=== PATIENT | female | born 1930 | race African-American/Black ===

== ENCOUNTER 2017-01-27 13:38 | Observation (INO) | payer MEDICARE, OTHER ==
--- NOTE | ~2017-01-27 | HP ---
Unit #: [id number] #: [id number] Patient: MI MONTERO [id number] [address] [address] [id number] MR#: [id number] NAME: MI MONTERO ROOM: 26485 Age: 86 Sex: F Admission Date: 01/27/2017 : 1930 Attending Physician: Herminia Davila M.D. Primary Care Physician: No Primary Care Physician HISTORY AND PHYSICAL CHIEF COMPLAINT Weakness, altered mental status. HISTORY OF PRESENT ILLNESS The patient is an 86-year-old female with a history of a hypertension, brought to the emergency room lethargic and more confused than normal. The patient is hard of hearing and a poor historian and the history is obtained by speaking to the patient's daughter at the bedside. The patient was found to be more confused with a facial asymmetry. The patient's last baseline was at 9:30 a.m. The patient's asymmetry was resolved upon arrival to the emergency room, within 20 to [address] of the head has remained negative. The patient was found to bradycardic in the low 40s and is being admitted for the above reasons. Denies any nausea or vomiting, chest pain or generalized weakness. PAST MEDICAL HISTORY History of hypertension. PAST SURGICAL HISTORY None. HOME MEDICATIONS Patient is on Coreg, Catapres, famotidine, ferrous sulfate, Neurontin, hydralazine, hydrochlorothiazide, levothyroxine, meloxicam, Klor-Con. SOCIAL HISTORY No history of smoking cigarettes, drinking alcohol or any illicit drug abuse. FAMILY HISTORY Reviewed and none. REVIEW OF SYSTEMS A 14-point review of systems performed and only pertinent positive findings are described above. PHYSICAL EXAMINATION VITAL SIGNS: Temperature 97.7, pulse 45, respirations 16, blood pressure 124/60, saturating 98% on room air. GENERAL: Patient is lying on the bed not in any acute distress. HEENT: Atraumatic, normocephalic. Pupils equal, round, and reactive to light and accommodation. Dry mucous membrane. NECK: Supple. LUNGS: Clear to auscultation bilaterally. Unit #: [id number] #: [id number] Patient: MI MONTERO HEART: Regular rate and rhythm, bradycardic. ABDOMEN: Soft, positive bowel sounds. EXTREMITIES: No cyanosis, no clubbing. NEUROLOGIC: No gross focal motor deficit. DIAGNOSTIC STUDIES LABORATORY: WBC 4.3, hemoglobin 9.9, hematocrit 31.1, platelets 199. INR 1. Sodium 141, potassium 3.6, chloride 110, bicarb 26, glucose 35, BUN 23, creatinine 1.3. Troponin less than 0.05. TSH 0.88. Magnesium 1.9. B12 103, folate 11.9. IMAGING: CT of the head shows no acute intracranial finding. Air-fluid levels in the middle ear. Not changes since previous study. ASSESSMENT AND PLAN 1. Altered mental status. 2. Transient ischemic attack. 3. Bradycardia. PLAN 1. Admit patient as observation on telemetry. 2. Patient has been seen by Neurology and recommended MRI of the brain. 3. When patient is done with MRI of the brain, we will have Cardiology for the bradycardia. 4. Hold Coreg. 5. Check UA. 6. Repeat labs again in the morning. 7. Further recommendations will follow. MARI/elena TD: 01/27/2017 18:24 JOB #: [id number] Dictated by Jose Dash/tracie TD: 01/27/2017 18:46 JOB #: [id number] HISTORY AND PHYSICAL Page 1 of 1 X HERMINIA DAVILA MD X HISTORY AND PHYSICAL
--- NOTE | ~2017-01-27 | CO ---
Unit #: [id number] #: [id number] Patient: MI BOYER [id number] [address] [place], [place] [address] [id number] I MR#: [id number] NAME: MI BOYER ROOM: 318 Age: 86 Sex: F Admission Date: 01/27/2017 : 1930 Attending Physician: Renaldo Mario M.D. Primary Care Physician: No Primary Care Physician Consultation Date: 01/28/2017 CONSULTATION REPORT REASON FOR CONSULTATION Sinus bradycardia. HISTORY OF PRESENT ILLNESS This is an 86-year-old female with a history of hypertension, hypothyroidism, COPD, nicotine abuse and dementia who was brought into the emergency room for complaints by the family of her being more confused, weak and had some left facial droop, along with garbled speech and difficulty talking. The patient is a poor historian due to dementia. All information is provided by the daughter, who is at the bedside, the chart and staff. According to the daughter, the patient had a spell back in September where she had similar symptoms, and she was not taken to the hospital at that time. She seemed (1) her symptoms resolved, but she has remained more with an unsteady gait and a little more confused. There is no indication the patient has had any chest pain, pain in her neck, bilateral jaws, shoulders, arms or elbows. There are no complaints of any dizziness. No syncope or syncopal episodes reported. No recent cough, fever or chills. No nausea, vomiting or diarrhea reported. Neurology has been consulted. In the emergency room the patient's blood pressure was 124/60, heart rate was 45, respirations 16, temperature 97.7, O2 sats 98% on room air. The patient's EKG showed sinus bradycardia, heart rate 45 beats per minute. She does have a first-degree AV block, left axis deviation. Appears to have a Q wave in V1 and 2, septal leads, and some ST-T wave abnormalities. The patient's initial cardiac enzymes are negative. CT of the head did not show anything acute. Initial labs unremarkable. The patient was given aspirin 325, IV Solu-Medrol, and as mentioned, neurology and cardiology consulted to assist with evaluation and management. Patient is on carvedilol, and that has been stopped. PAST MEDICAL HISTORY 1. Hypertension. 2. Hypothyroidism. 3. Questionable transient ischemic attack in the past. 4. COPD. 5. Questionable peripheral vascular disease, chronic leg pain. 6. Active nicotine abuse. 7. History of alcohol use. Quit years ago. 8. Dementia. Unit #: [id number] #: [id number] Patient: MI BOYER PAST SURGICAL HISTORY None. HOME MEDICATIONS 1. Carvedilol 12.5 mg p.o. t.i.d. 2. Catapres 0.1 mg p.o. b.i.d. 3. Famotidine 20 mg p.o. q.h.s. 4. Ferrous sulfate 325 mg p.o. b.i.d. 5. Neurontin 100 mg p.o. t.i.d. 6. Gabapentin 800 mg p.o. at bedtime. 7. Hydralazine 100 mg p.o. t.i.d. 8. Hydrochlorothiazide 12.5 mg p.o. daily. 9. Levothyroxine 125 mcg p.o. daily. 10. Mobic 15 mg p.o. daily. 11. Klor-Con 20 mEq p.o. daily. ALLERGIES No known drug allergies. SOCIAL HISTORY The patient lives with her daughter. She does ambulate with a walker. The daughter states she sits on the porch almost all day outside. Her appetite is fairly good. She has been smoking all of her adult life. She smokes anywhere from 5-6 cigarettes a day. At one time she was a 1/2- to 0-mjkn-u-day smoker. She used to drink hard liquor and beer but will only have occasional beer. Has not drank hard liquor in over 20 years. No illicit drug abuse. FAMILY HISTORY Her parents at older ages. She had a younger sister who was a heavy drinker and had an [place]. She has a younger brother who has heart problems, but details unavailable. REVIEW OF SYSTEMS See details in the HPI. PHYSICAL EXAMINATION GENERAL: On exam, Ms. Boyer is an 86-year-old female, in no acute respiratory distress. She is awake and alert. She is pleasantly confused. Is aware of her daughter but is not aware of date, time or what hospital. NEUROLOGIC: Moves all extremities well. Slight left facial droop noted. Answers simple questions, yes/no, appropriately. Speech is clear. VITAL SIGNS: Blood pressure is 150/73, heart rate 58, respirations 18, temperature 97.9, O2 sats 98% on room air. NECK: Trachea is midline. No thyromegaly or lymphadenopathy. Normal carotid upstrokes. HEART: S1, S2, regular rate and rhythm. Distant heart sounds noted. Soft systolic murmur at left sternal border. LUNGS: Diminished; otherwise, clear. ABDOMEN: Soft, nontender. EXTREMITIES: Pedal pulses are very weak. No pedal edema. DIAGNOSTIC STUDIES LABORATORY DIAGNOSTIC DATA: Glucose is 114, BUN 25, creatinine 1.1, eGFR 52.3, sodium 138, potassium 3.5, chloride 106, CO2 23, calcium 8.6, magnesium 1.5. TSH is 0.88, free T4 1.22. WBC is 3.2; on admission WBC was 4.3. Hemoglobin 10.3, hematocrit 31.8, platelets 220. Urinalysis - Unit #: [id number] #: [id number] Patient: GROVES,MI 1+ leukocyte esterase, 0-2 urobilinogen; otherwise, unremarkable. Initial cardiac enzymes - CK-MB is 2.9, troponin less than 0.05; CK-MB 2.1, troponin less than 0.05. INR is 1. IMAGING: CT of the chest shows no acute abnormalities. Does note chronic changes indicating probable sequelae of chronic microvascular ischemia. Mild generalized atrophy and vascular calcifications. There is also found complete opacification of the left mastoid air cells with some fluid in the left middle ear. MRI of the brain was significantly motion degraded. Possible band-like area of restricted diffusion in the right temporal lobe may be artifact or a true finding. CARDIOVASCULAR: EKG shows sinus bradycardia with a first-degree AV block, left axis deviation, left ventricular hypertrophy, septal Q waves, poor R wave progression, T wave inversion in inferior and anterolateral leads. Telemetry shows sinus bradycardia with heart rate 48 to normal sinus rhythm, heart rate 66. IMPRESSION 1. Altered mental status. 2. Questionable TIA. 3. Bradycardia. 4. History of hypertension. 5. Hypothyroidism. 6. COPD. 7. Questionable peripheral vascular disease. 8. Dementia. 9. Nicotine abuse. 10. Reformed alcohol use. 11. History of anemia. Is on iron supplements. PLAN 1. Cardiology consulted to assist with evaluation and management. Patient's heart rate was in the 40s on admission. Will stop carvedilol and Catapres. The patient was on carvedilol 12.5 mg p.o. 3 times daily. Will monitor blood pressure and add some different blood pressure medications if needed. Will continue on hydralazine. Right now her blood pressure is stable. 2. On exam, there are no signs or symptoms of unstable angina or acute congestive heart failure. Cardiac enzymes are negative. Will obtain a two-D echo to evaluate LV function and valves. 3. Neurologic workup in progress. 4. Obtain a fasting lipid profile. TSH is normal. 5. They are trying to evaluate for any infection. So far her urinalysis is fairly unremarkable. 6. The patient is on aspirin in addition to her hydralazine. Will need to put on SCDs for DVT prophylaxis. 7. Further recommendations pending per Dr. Callahan. Waiting for neurologic workup. 8. Had a long discussion with the patient's daughter at the bedside, who helps with decisions. They want conservative medical management at this point. Unit #: [id number] #: [id number] Patient: MI BOYER Dictated by... Elaine Smith A.P.R.N. for Jose Sunshine/aureliano TD: 01/28/2017 14:52 JOB #: [id number] CONSULTATION REPORT Page 1 of 1 X Elaine Smith APRN X CONSULTATION REPORT
--- NOTE | ~2017-01-27 | CO ---
Unit #: [id number] #: [id number] Patient: MI MONTERO [id number] [facility] [address] [facility] [facility]. [place], [place] [address] [id number] I MR#: [id number] NAME: MI MONTERO ROOM: 318 Age: 86 Sex: F Admission Date: 01/27/2017 : 1930 Attending Physician: Renaldo Mario M.D. Consultation Date: 01/27/2017 CONSULTATION REPORT PRIMARY CARE PHYSICIAN Not known. REASON FOR CONSULTATION Mental status changes. PATIENT IDENTIFICATION This is an 86-year-old right-handed female, who was evaluated in room T2 in the ER at [facility]. SOURCE OF INFORMATION My discussion with ER physician, also with the patient's daughter, who was at the bedside. PROBLEM LIST 1. She has history of hypertension. 2. COPD. 3. She is a smoker. 4. Hypothyroidism. 5. Arthritis. 6. She has had back surgeries above more than 20 years ago. HISTORY OF PRESENT ILLNESS This 86-year-old right-handed white female, who was actually brought in at 1:38 p.m. Initially the concern was if there was any speech problem and focal abnormalities like facial asymmetry and that was a concern because we could be in the window for stroke and tPA, but the first thing was that she may have been last normal at 9:30 and there was facial asymmetry, which was not really appreciated, so we just went for CT, which showed atrophy and some small vessel type changes. No hemorrhage or any other issues, but then the other family member came and they say that she is back to normal. She does have cognitive changes and has in and out memory problems, and that she sometime does not even recognize her daughter or granddaughter and then several minutes later, she is fine. There is also concern there maybe some lip swelling and they say that she has several allergies. She is taking several medications, but nothing else unusual. No seizures. No migraines and she is now doing so well, she wants to go home. Nothing suggesting infection, but it does not look like a major stroke or TIA and further workup has been initiated. Her GFR was slightly low, so we are not going to push for CTA right now because all the symptoms are very questionable and nothing real focal or very high and NIH was reported. Unit #: [id number] #: [id number] Patient: MI MONTERO As I mentioned before, she is almost back to normal. No change in medication or other issues. No trauma. No infection known to me. Vital signs are relatively stable. She has never been here before, so we are trying to gather more information. PAST MEDICAL HISTORY As discussed above. PAST SURGICAL HISTORY Some sort of back surgery. ALLERGIES They reported multiple allergies, which we are looking into. HOME MEDICATIONS Apparently meloxicam, levothyroxine, hydrochlorothiazide, iron, Coreg, hydralazine, gabapentin, famotidine, potassium chloride, clonidine. FAMILY HISTORY Noncontributory secondary to her age and no primary neurologic issue known to us. SOCIAL HISTORY Apparently, she lives with her daughter. She continues to smoke. She used to drink when she was younger, but not anymore. No drug use. REVIEW OF SYSTEMS Very difficult to obtain because of her memory problem, but when asked specifically, no headaches, no chest pain, no shortness of air. No nausea, vomiting, diarrhea, or constipation. No genitourinary symptoms. No other extremity problems. No real back problem. No psychotic issue. Neurologic issue was this confusional state and generalized weakness. No other hematologic, dermatological, endocrine problem known to me. PHYSICAL EXAMINATION VITAL SIGNS: Temperature 97.7, pulse is 45, respirations 16, blood pressure 120/58, O2 saturations were 98%. Weight of 125 pounds. BMI was 24. NEUROLOGIC: The patient is awake. She is alert. She is oriented to herself. She has not even oriented to her family members like her daughter. She is not oriented to time or space. She can name a few objects. She can repeat some. She has mild dysarthria, but that may be because she is not wearing her dentures. Cranial nerve exam, she does definitely respond to threats in the primary luna. Full luna are questionable. Pupils are sluggishly reactive to size about 2 mm. Eye movements are conjugate. I did not see any ptosis. I did not see any nystagmus. Extraocular movements are intact. Sensation on the face and scalp seemed to be normal. I really do not appreciate a facial asymmetry. Her lower lip seems to be a rather large, but family says that she does not have dentures and this is how she is. Her tongue was midline. I could not visualize oropharynx or uvula. Head turning was spontaneous. No neck stiffness was seen. Motor examination, she has normal bulk, tone. Strength was 5+/5 all over. Sensory examination intact for soft touch and pain sensation. No extinction was seen. Romberg was not evaluated. Gait examination was Unit #: [id number] #: [id number] Patient: MI MONTERO deferred. I could not get any reflexes. Toes are equivocal. DIAGNOSTIC STUDIES LABORATORY RESULTS: White count is 4.3, RBC count was 3.64, H and H of 9.9 and 31.1, platelet count was 199. All other labs are pending. IMAGING STUDIES: I reviewed her head CT that showed several areas of small vessel type changes. IMPRESSION Mental status changes, which is very nonspecific in patient of her age. I am not really impressed with anything focal. She does have small vessel disease. She does have risk factors for stroke, so I will get an MRI. I will get an MRA of the head and neck and based on that, we will decide future course of action. Again, I talked to her daughter and explained to her and the decision was, we are not going to go for tPA or other intervention at present. I agree with aspirin and I will follow up and further treatment will be based on our findings. Please see my orders and I discussed with the team several times. Dictated by... Jose Krishnamurthy/jakob TD: 01/29/2017 02:56 JOB #: [id number] CONSULTATION REPORT Page 1 of 1 X Karishma Veronica MD CONSULTATION REPORT
--- NOTE | ~2017-01-27 | MR18 ---
[facility] A Service of [facility] RADIOLOGY TEXT RESULTS PATIENT: MI MONTERO LOCATION: [facility] 318 : [birth year] UNIT #: [id number] AGE: [address]: Renaldo Mario MD SEX: F ORDER DR: [id number] [facility] [address] [facility] [place], [place] [address] [id number] I MR#: [id number] Acc #: [id number] NAME: MI MONTERO : 1930 SEX: F STUDY DATE/TIME: 01/27/2017 19:55 UNIT: [facility] PCU ROOM: [facility] STUDY DESCRIPTION: MR Brain Wo Contrast Attending Physician: Stu Davila M.D. Ordering Physician: Karishma Veronica M.D. Primary Care Physician: Primary Care Physician No MRI CENTER REPORT This report is preliminary unless electronic signature is present. EXAM MRI brain without contrast INDICATIONS Lethargy and confusion with left facial droop since this morning. PROCEDURE Multiplanar, multisequence MR imaging of the brain without the administration of contrast. COMPARISON 01/27/2017 FINDINGS Study is significantly motion degraded. There is no definitive evidence for midline shift or extraaxial fluid collection or hydrocephalus. T1-weighted sequences are motion degraded and cannot comment on the presence or absence of hemorrhage. There is a possible band-like area of restricted diffusion in the right temporal lobe, but it is not clear whether this represents artifact or a true finding. IMPRESSION Study is significantly motion degraded. Possible band-like area of restricted diffusion in the right temporal lobe may be artifact or a true finding. There is no appreciable midline shift or evidence for hydrocephalus or extraaxial collection. Dictated by... Vitaliy Humphreys M.D. THIS IS AN ELECTRONICALLY VERIFIED REPORT Vitaliy Humphreys M.D. at 01/28/2017 9:31 AM [facility] A Service of [facility] RADIOLOGY TEXT RESULTS PATIENT: MI MONTERO LOCATION: [facility] 318- : [birth year] UNIT #: [id number] AGE: [address]: Renaldo Mario MD SEX: F ORDER DR: HARI/mariam TD: 01/27/2017 22:29 JOB #: [id number] MRI CENTER REPORT Page 1 of 1 COPY
--- NOTE | ~2017-01-27 | DS ---
Unit #: [id number] #: [id number] Patient: MI MONTERO [id number] [address] [facility]. [place], [place] [address] [id number] I MR#: [id number] NAME: MI MONTERO ROOM: 318 Age: 86 Sex: F Admission Date: 01/27/2017 : 1930 Discharge Date: 01/29/2017 Attending Physician: Renaldo Mario M.D. Primary Care Physician: No Primary Care Physician DISCHARGE SUMMARY REASON FOR ADMISSION Altered mental status. HISTORY OF PRESENT ILLNESS/HOSPITAL COURSE Please refer back to H and P for complete details of initial part of hospital stay. In regards to the patient's bradycardia as well as hypotension, consultation was placed to Dr. Callahan who recommended discontinuation of her clonidine as well as Coreg at t.i.d. dosing. Recommended that patient resume and only be placed on Norvasc for blood pressure management. In regards to patient's altered mental status, consultation was placed to neurology services. Dr. Veronica saw and evaluated the patient. It was noted she did have fairly significant B12 deficiency which was replenished while here and as an outpatient needs to be replenished via IM injections. Her Neurontin was placed on hold while she was here. She appeared to be having acute delirium on baseline dementia. That was our initial diagnosis. She underwent an MRI eventually which did not show any acute process and, after review and discussion with Dr. Veronica, it was felt as though her altered mental status was likely multifactorial secondary to both medications and progression of her underlying dementia. This was discussed with patient's daughter as well as granddaughter were are present at bedside. They expressed concern in regards to her care at home and consideration may be given for intermission coordinator placement. This decision was deferred to the family and to decide with the family physician at a later point in time. It should be noted that PT and OT were also consulted this hospital admission and patient was otherwise stable and did not require rehab nor was it recommended at the time of discharge. The patient also underwent a 2D echocardiogram this hospital admission which did show ejection fraction of 50% to 55%. There was heavy mitral calcification with mild to moderate mitral regurg which was noted. FINAL DISCHARGE DIAGNOSES 1. Mental status change, likely multifactorial in origin secondary to polypharmacy, acute delirium on baseline dementia as well as progression of her dementia. 2. B12 deficiency. 3. Dementia, multifactorial. 4. Prior history of transient ischemic attack. 5. Osteoarthritis history. 6. Anemia. 7. Hypothyroidism. Unit #: [id number] #: [id number] Patient: MI MONTERO FINAL DISCHARGE MEDICATIONS 1. Ferrous sulfate 325 mg p.o. b.i.d. 2. Pepcid 20 mg p.o. q. h.s. 3. Aspirin 81 mg p.o. daily. 4. Klor-Con 20 mEq p.o. daily. 5. Synthroid 125 mcg p.o. daily. 6. Vitamin B12 1000 mcg p.o. daily. 7. Norvasc 5 mg p.o. daily. The patient was instructed to follow up with Dr. Callahan from cardiology services on March 15, 2017, at 12:45 p.m. DISCHARGE CONDITION Stable. DISCHARGE DISPOSITION Home. Dictated by... Jose Phelan/elma TD: 02/01/2017 12:24 JOB #: [id number] DISCHARGE SUMMARY Page 1 of 1 X Renaldo Mario MD X DISCHARGE SUMMARY
--- NOTE | ~2017-01-27 | EKG ---
PATIENT: MI MONTERO UNIT #: [id number] Ventricular Rate: 45 BPM Atrial Rate: 45 BPM P-R Interval: 210 ms QRS Duration: 104 ms Q-T Interval: 480 ms QTC Calculation(Bezet): 415 ms P [place]: 61 degrees Calculated R [place]: -33 degrees Calculated T [place]: -29 degrees Diagnosis Line: Sinus bradycardia with 1st degree A-V block Diagnosis Line: Left axis deviation Diagnosis Line: Septal infarct , age undetermined Diagnosis Line: ST and T wave abnormality, consider lateral ischemia Diagnosis Line: Abnormal ECG Diagnosis Line: No previous ECGs available Diagnosis Line: Confirmed by JIM KAPOOR MD ([id number]) on Diagnosis Line: 01/28/2017 4:01:48 PM INTERPRETING MD: NENITA
--- NOTE | ~2017-01-27 | CT71 ---
[facility] A Service of [facility] RADIOLOGY TEXT RESULTS PATIENT: MI MONTERO LOCATION: [facility] 318-01 : [birth year] UNIT #: [id number] AGE: [address]: Renaldo Mario MD SEX: F ORDER DR: [id number] [facility] [address] [place], [place] [address] [id number] MR#: [id number] Acc #: [id number] NAME: MI MONTERO : 1930 SEX: F STUDY DATE/TIME: 01/27/2017 14:14 UNIT: [facility] PCU ROOM: 318 STUDY DESCRIPTION: CT Head Wo Contrast Attending Physician: Stu Davila M.D. Ordering Physician: Chidi Craig D.O. MEDICAL IMAGING REPORT This report is preliminary unless electronic signature is present EXAM CT head 01/27/2017. HISTORY Focal neuro deficit. Weakness x today complains of weakness all over. Lethargic and more confused than normal today. CT head performed skull base through vertex without intravenous contrast. COMPARISON STUDIES 01/28/2013. TECHNIQUE This CT exam was performed with one or more of the following radiation dose reduction techniques: automatic exposure control, adjustment of mA and/or kV according to patient size, and iterative reconstruction. FINDINGS Brainstem unremarkable. Cerebellum and cerebral hemispheres show overall preservation of olivier matter - white matter differentiation. No hemorrhage. There is no evidence of acute cortical ischemia. The midline structures are nondisplaced. There are periventricular and deep white matter tract hypodensities likely reflecting sequelae of chronic microvascular ischemia. No acute basal ganglia abnormality. Ventricles, cisterns, sulci show mild generalized enlargement consistent with mild generalized atrophy. Cavernous carotid and distal vertebral arterial calcifications. No intra or extraaxial mass effect or abnormal intracranial fluid collection. Paranasal sinuses mastoid air cells show complete opacification of the left mastoid air cells with some fluid in the left middle ear as well. I see no bony destructive process. Correlate clinically for any indication of left otomastoiditis. Similar appearance in 2012. [facility] A Service of [facility] RADIOLOGY TEXT RESULTS PATIENT: MI MONTERO LOCATION: C3A 318-01 : [birth year] UNIT #: [id number] AGE: [address]: Renaldo Mario MD SEX: F ORDER DR: IMPRESSION 1. No acute abnormalities seen in the brain. If the patient has ongoing neurologic symptoms, consider follow up imaging. 2. Chronic changes include the following: Periventricular deep white matter tract probable sequelae of chronic microvascular ischemia, mild generalized atrophy, vascular calcifications. 3. Complete opacification left mastoid air cells with some fluid or mucosal thickening in the left, middle ear. Correlate with any clinical signs or symptoms of otomastoiditis. Similar appearance in 2013. Dictated by... Benny Neal M.D. THIS IS AN ELECTRONICALLY VERIFIED REPORT Benny Neal M.D. at 02/02/2017 10:15 AM Naomy TD: 01/27/2017 14:55 JOB #: [id number] MEDICAL IMAGING REPORT Page 1 of 1 COPY
[2017-01-27 14:17] LABS: BASOPHIL% 0.6 % (0-2.5); EOSINOPHIL# 0.1 X10e3 (0-0.7); HEMATOCRIT 31.1 % (35.0-45.0); HEMOGLOBIN 9.9 gm/dL (12.0-16.0); LYMPHOCYTE# 0.9 X10e3 (1.0-3.5); LYMPHOCYTE% 20.4 % (17.0-45.0); MEAN CELL VOLUME 85.4 FL (83-96); MEAN CORPUSCULAR HEMOGLOBIN 27.4 PG (28-34); MEAN PLATELET VOLUME 8.3 FL (6.5-11.5); MONOCYTE# 0.4 X10e3 (0-1.0); MONOCYTE% 10.1 % (3.0-12.0); NEUTROPHIL# 2.9 X10e3 (1.5-7.1); NEUTROPHIL% 65.9 % (40-75); PLATELET COUNT 199 X10e3 (140-420); RED BLOOD COUNT 3.64 X10e (3.90-5.30); RED CELL DISTRIBUTION WIDTH 14.9 % (11.0-15.5); WHITE BLOOD COUNT 4.3 X10e3 (4.0-10.5)
[2017-01-27 14:18] LABS: DIFF IND NO
[2017-01-27 14:34] LABS: PROTHROMBIN TIME (PATIENT) 10.7 SECONDS (10.0-11.7)
[2017-01-27 14:35] LABS: POC - CREATININE 1.31 mg/dL (0.44-1.03)
[2017-01-27 14:40] LABS: BUN/CREATININE RATIO 17.69; CALCIUM SERUM 8.6 mg/dL (8.4-10.2); CREATININE SERUM 1.3 mg/dL (0.6-1.4); GLOM FILT RATE Estimated 36.9 mL/min (>60); POTASSIUM 3.6 mmol/L (3.5-5.1)
[2017-01-27 15:13] LABS: POC - CKMB 2.9 ng/mL (0.0-7.9); POC - TROPONIN <0.05 ng/mL (<=0.05)
[2017-01-27 15:50] LABS: THYROID STIMULATING HORMONE 0.88 uIU/ml (0.34-5.60)
[2017-01-27] MEDS ORDERED: CATAPRES0.1 MG PO (15:50)
[2017-01-27] MEDS ORDERED: COREG12.5 MG PO (15:50)
[2017-01-27] MEDS ORDERED: ACID CONTROLLER20 MG PO (15:50)
[2017-01-27] MEDS ORDERED: GABAPENTIN800 MG PO (15:51)
[2017-01-27] MEDS ORDERED: NEURONTIN100 MG PO (15:51)
[2017-01-27] MEDS ORDERED: HYDRALAZINE HC100 MG PO (15:51)
[2017-01-27] MEDS ORDERED: FERRO-TIME325 MG PO (15:51)
[2017-01-27] MEDS ORDERED: LEVO-T125 MCG PO (15:52)
[2017-01-27] MEDS ORDERED: MICROZIDE12.5 M1 PO (15:52)
[2017-01-27] MEDS ORDERED: KCL PO (15:52)
[2017-01-27] MEDS ORDERED: MOBIC PO (15:52)
[2017-01-27] MEDS ORDERED: PATIENT'S PHARMACY (15:53)
[2017-01-27 15:55] LABS: FOLATE (FOLIC ACID) 11.9 ng/mL (>5.8)
[2017-01-27 15:57] LABS: FREE THYROXIN (T4) 1.22 ng/dL (0.58-1.64)
[2017-01-27 17:25] LABS: POC - CKMB 2.1 ng/mL (0.0-7.9); POC - TROPONIN <0.05 ng/mL (<=0.05)
[2017-01-27 18:01] LABS: URINE SOURCE CLEAN CATCH
[2017-01-27 18:05] LABS: URINE APPEARANCE CLEAR; URINE BILIRUBIN NEG (NEG); URINE BLOOD NEG (NEG); URINE COLOR DK YELLOW; URINE GLUCOSE NEG (NEG); URINE KETONE NEG (NEG); URINE LEUKOCYTE ESTERASE 1+ (NEG); URINE NITRATE NEG (NEG); URINE PROTEIN NEG (NEG); URINE SPECIFIC GRAVITY 1.021 (1.003-1.035); URINE UROBILINOGEN 0.2 MG/DL (NEG)
[2017-01-27 18:08] LABS: URINE BACTERIA AUWI NEG (NEGATIVE); URINE SQUAMOUS EPITHELIAL CELL OCC /[HPF]
[2017-01-27 18:26] LABS: CULTURE INDICATED? NO; URBCS1 AUWI 0-2 /[HPF] (0-2)
[2017-01-28 06:26] LABS: BASOPHIL% 0.3 % (0-2.5); EOSINOPHIL% 0.1 % (0.0-7.0); HEMATOCRIT 31.8 % (35.0-45.0); HEMOGLOBIN 10.3 gm/dL (12.0-16.0); LYMPHOCYTE# 0.5 X10e3 (1.0-3.5); LYMPHOCYTE% 16.7 % (17.0-45.0); MEAN CELL VOLUME 85.1 FL (83-96); MEAN CORPUSCULAR HEMOGLOBIN 27.5 PG (28-34); MEAN CORPUSCULAR HGB CONC 32.3 g/dL (30-36); MEAN PLATELET VOLUME 8.3 FL (6.5-11.5); MONOCYTE% 1.2 % (3.0-12.0); NEUTROPHIL# 2.6 X10e3 (1.5-7.1); NEUTROPHIL% 81.7 % (40-75); PLATELET COUNT 220 X10e3 (140-420); RED BLOOD COUNT 3.73 X10e (3.90-5.30); RED CELL DISTRIBUTION WIDTH 14.7 % (11.0-15.5); WHITE BLOOD COUNT 3.2 X10e3 (4.0-10.5)
[2017-01-28 06:33] LABS: DIFF IND NO
[2017-01-28 07:24] LABS: BUN/CREATININE RATIO 22.72; CALCIUM SERUM 8.6 mg/dL (8.4-10.2); CREATININE SERUM 1.1 mg/dL (0.6-1.4); GLOM FILT RATE Estimated 52.3 mL/min (>60); POTASSIUM 3.5 mmol/L (3.5-5.1)
[2017-01-29 05:36] LABS: HEMATOCRIT 36.1 % (35.0-45.0); HEMOGLOBIN 11.6 gm/dL (12.0-16.0); MEAN CELL VOLUME 84.6 FL (83-96); MEAN CORPUSCULAR HEMOGLOBIN 27.2 PG (28-34); MEAN CORPUSCULAR HGB CONC 32.2 g/dL (30-36); MEAN PLATELET VOLUME 8.3 FL (6.5-11.5); RED BLOOD COUNT 4.27 X10e (3.90-5.30); RED CELL DISTRIBUTION WIDTH 15.1 % (11.0-15.5)
[2017-01-29 06:01] LABS: WHITE BLOOD COUNT 8.8 X10e3 (4.0-10.5)
[2017-01-29 06:32] LABS: CALCIUM SERUM 9.4 mg/dL (8.4-10.2); GLOM FILT RATE Estimated 58.7 mL/min (>60); MAGNESIUM 1.8 mg/dL (1.6-3.0); POTASSIUM 3.5 mmol/L (3.5-5.1)
[2017-01-29] MEDS ORDERED: ASPIRIN81 MG PO (16:35)
[2017-01-29] MEDS ORDERED: B-121000 MC1 PO (16:36)
[2017-01-29] MEDS ORDERED: TYLENOL325 M1 PO (16:37)
[2017-01-29] MEDS ORDERED: NORVASC2.5 MG PO (16:38)
== END 2017-01-29 18:17 | disposition home or self-care (01) ==
LOC: CED 13:38 → CEDOF 17:00 → CED 17:43 → CEDOF 17:43 → C3A PCU 20:25 → CEDOF 20:25 → C3A PCU 20:25
PROVIDERS: Emergency Medicine; Internal Medicine; Nurse Practitioner; Psychiatry & Neurology Neurology
DX: R41.82 Altered mental status, unspecified (principal); E53.8 Deficiency of other specified B group vitamins; F03.90 Unspecified dementia, unspecified severity, without behavioral disturbance, psychotic disturbance, mood disturbance, and anxiety; Z86.73 Personal history of transient ischemic attack (TIA), and cerebral infarction without residual deficits; D64.9 Anemia, unspecified; E03.9 Hypothyroidism, unspecified; R00.1 Bradycardia, unspecified; J44.9 Chronic obstructive pulmonary disease, unspecified; F17.210 Nicotine dependence, cigarettes, uncomplicated; Z82.49 Family history of ischemic heart disease and other diseases of the circulatory system; Z79.82 Long term (current) use of aspirin
CPT/HCPCS: 36415; 70450; 70551; 80048; 80061; 81003; 82553; 82565; 82607; 82746; 82947; 83036; 83735; 84439; 84443; 84484; 85025; 85027; 85610; 93005; 93306; 94760; 96372; 96374; 97116; 97162; 97166; 99285; G0378; G8978-GP; G8979-GP; G8980-GP; G8987-GO; G8988-GO; G8989-GO; J2060; J2930; J3420